=== PATIENT | male | born 1970 | race Two or more races ===

== ENCOUNTER 2021-09-21 03:09 | Emergency (ER) | payer SELFPAY ==
[~2021-09-21] VITALS: Ht 180.3 cm; Wt 113.4 kg
[2021-09-21] MEDS ORDERED: LIDOCAINE 1% HCL (LOCAL ANESTH.) INJ 20ML MDV ID ONE (03:45)
[2021-09-21] MEDS ORDERED: LIDOCAINE 1%HCL (LOCAL ANESTH) 10 ML MDV ONE (03:53)
[2021-09-21 05:45] VITALS: BP 133/87
== END 2021-09-21 09:18 | disposition home or self-care (01) ==
LOC: EDBD 03:09 → ER 03:09
DX: S91.201A Unspecified open wound of right great toe with damage to nail, initial encounter (principal); L60.0 Ingrowing nail; E11.9 Type 2 diabetes mellitus without complications; X58.XXXA Exposure to other specified factors, initial encounter; Y93.89 Activity, other specified; Y92.89 Other specified places as the place of occurrence of the external cause; Y99.8 Other external cause status
CPT/HCPCS: 11730; 99284; J2001

== ENCOUNTER 2024-05-08 17:18 | Inpatient (IN) | payer OTHER ==
[~2024-05-08] VITALS: Ht 185.4 cm; Wt 131.0 kg
--- NOTE | 2024-05-08 17:40 | ED.PDOC ---
General HPI Comments 54y M who presents to the ED for chief complaint of flank pain. Pt states he has been having R sided flank pain for the past 2-3 days. pt states the pain is sharp in nature, rating the pain 9/10, radiating to the R groin, with no noted exacerbating or relieving factors. Pt has associated nausea and mild dysuria but otherwise denies vomiting, diarrhea, fever, cough, chills, or hematuria. Pt denies any associated fall or trauma. Pt otherwise denies any past history of kidney stones. Pt denies any other symptoms at this time. Chief Complaint: flank pain Time Seen by MD: 17:37 Reviewed notes: Nurses Notes, Allergies Allergies: Coded Allergies: NO KNOWN ALLERGIES (Unverified , 05/08/24) Information Source: Patient Mode of Arrival: Ambulatory Brought in by: self Severity: Moderate Inability to void: None Timing: Days Duration: Since onset Prehospital treatment: None Onset: Spontaneous Symptoms: Dysuria History of: None Location: (R) Flank Location male: R Scrotum Penile discharge: None Modifying factors: None associated signs and symptoms: Nausea, Flank Pain Past Medical History PAST MEDICAL HISTORY: Cancer, CHF, COPD, DM, High Lipids, HTN Surgical History: Denies all surgeries Surgical History (Other): R kidney resection due to cancer Family History Family History: Reviewed,noncontributory to illness Social History Smoker: Cigarettes Alcohol: Denies ETOH Use Drugs: Denies Drug Use Lives In: Home Constitutional: denies: chills, diaphoresis, fatigue, fever, malaise, sweats, weakness, others EENTM: denies: blurred vision, double vision, ear bleeding, ear discharge, ear drainage, ear pain, ear ringing, eye pain, eye redness, hearing loss, mouth pain, mouth swelling, nasal discharge, nose bleeding, nose congestion, nose pain, photophobia, tearing, throat pain, throat swelling, voice changes, others Respiratory: denies: cough, hemoptysis, orthopnea, SOB at rest, shortness of breath, SOB with excertion, stridor, wheezing, others Cardiovascular: denies: chest pain, dizzy spells, diaphoresis, Dyspnea on exer tion, edema, irregular heart beat, left arm pain, lightheadedness, palpitations, PND, syncope, others Gastrointestinal: reports: nausea; denies: abdomen distended, abdominal pain, blood streaked bowels, constipated, diarrhea, dysphagia, difficulty swallowing, hematemesis, melena, poor appetite, poor fluid intake, rectal bleeding, rectal pain, vomiting, others Genitourinary: reports: dysuria, flank pain; denies: burning, frequency, hematuria, incontinence, penile discharge, penile sore, pain, testicle pain, testicle swelling, urgency, others Neurological: denies: dizziness, fainting, headache, left sided numbness, left sided weakness, numbness, paresthesia, pre-existing deficit, right sided numbness, right sided weakness, seizure, speech problems, tingling, tremors, weakness, others Musculoskeletal: denies: back pain, gout, joint pain, joint swelling, muscle pain, muscle stiffness, neck pain, others Integumetry: denies: bruises, change in color, change in hair/nails, dryness, laceration, lesions, lumps, rash, wounds, others Allergic/Immunocompromised: denies: Difficulty Healing, Frequent Infections, Hives, Itching, others Hematologic/Lymphatic: denies: anemia, blood clots, easy bleeding, easy bruising, swollen glands, others Endocrine: denies: excessive hunger, excessive sweating, excessive thirst, excessive urination, flushing, intolerance to cold, intolerance to heat, unexplained weight gain, unexplained weight loss, others Psychiatric: denies: anxiety, bipolar disorder, depression, hopeless, panic disorder, schizophrenia, sleepless, suicidal, others All Other Systems: Reviewed and Negative Physical Exam General Appearance: Moderate Distress, Obese HEENT: Normal ENT Inspection, Pharynx Normal, TMs Normal Neck: Full Range of Motion, Non-Tender, Normal, Normal Inspection Respiratory: Chest Non-Tender, Lungs Clear, No Accessory Muscle Use, No Respiratory Distress, Normal Breath Sounds Cardiovascular: No Edema, No JVD, No Murmur, No Gallop, Normal Peripheral Pulses, Regular Rate/Rhythm Breast Exam: Deferred Gastrointestinal: No Organomegaly, Non Tender, No Pulsatile Mass, Normal Bowel Sounds, Soft Genitalia: Deferred Pelvic: Deferred Rectal: Deferred Extremities: No calf tenderness, Normal capillary refill, Normal inspection, Normal range of motion, Non-tender, No pedal edema Musculoskeletal : Apperance: Normal Neurologic: Alert, building energy consultant II-XII nml as Tested, No Motor Deficits, Normal Affect, Normal Mood, No Sensory Deficits Cerebellar Function: Normal Reflexes: Normal Skin: Dry, Normal Color, Warm Lymphatic: No Adenopathy Was a procedure done? Was a procedure done?: No Differential Diagnosis Kidney stone (Female): N/A Kidney stone (Male): DJD, Pyelonephritis, Strain, Urinary tract infection Urinary Problem (Male): Epididymitis, Prostatitis, Plelonephritis, Urethritis, UTI X-Ray, Labs, Meds, VS Vital Signs Date Time Temp Pulse Resp B/P (MAP) Pulse Ox O2 Delivery O2 Flow Rate FiO2 05/08/24 20:27 112 20 160/101 05/08/24 20:26 112 20 98 Room Air 05/08/24 20:20 98.6 112 20 160/101 (120) 98 98.6 05/08/24 17:37 98.4 121 20 156/94 (114) 93 Lab Test 05/08/24 20:15 05/08/24 18:47 05/08/24 17:31 Range/Units Sodium Level Pending Potassium Level Pending Chloride Level Pending Carbon Dioxide Level Pending Anion Gap Pending Blood Urea Nitrogen Pending Creatinine Pending Glomerular Filtration Rate Calc Pending BUN/Creatinine Ratio Pending Serum Glucose Pending Calcium Level Pending Total Bilirubin Pending Aspartate Amino Transferase (AST) Pending Alanine Aminotransferase (ALT) Pending Alkaline Phosphatase Pending Total Protein Pending Albumin Pending Lipase Pending White Blood Count 10.5 4.4-10.8 10^3/uL Red Blood Count 4.88 4.5-5.90 10^6/uL Hemoglobin 15.6 13.5-17.5 g/dL Hematocrit 46.0 41.0-53.0 % Mean Corpuscular Volume 94.1 80.0-100.0 fL Mean Corpuscular Hemoglobin 32.0 28.0-32.0 pg Mean Corpuscular Hemoglobin Concent 34.0 32.0-36.0 g/dL Red Cell Distribution Width 13.4 11.8-14.3 % Platelet Count 230 140-450 10^3/uL Mean Platelet Volume 9.8 6.9-10.8 fL Neutrophils (%) (Auto) 68.4 37.0-80.0 % Lymphocytes (%) (Auto) 18.0 10.0-50.0 % Monocytes (%) (Auto) 9.4 0.0-12.0 % Eosinophils (%) (Auto) 3.8 0.0-7.0 % Basophils (%) (Auto) 0.4 0.0-2.0 % Neutrophils # (Auto) 7.2 1.6-8.6 10 ^3/uL Lymphocytes # (Auto) 1.9 0.4-5.4 10 ^3/uL Monocytes # (Auto) 1.0 0-1.3 10 ^3/uL Eosinophils # (Auto) 0.4 0-0.8 10 ^3/uL Basophils # (Auto) 0 0-0.2 10 ^3/uL Nucleated Red Blood Cells 0.0 % Urine Color Light-yellow Yellow Urine Clarity Turbid H Clear Urine pH 7.5 5.0-9.0 Urine Specific [place] 1.016 1.001-1.035 Urine Protein 1+ H Negative Urine Ketones Negative Negative Urine Blood Negative Negative /uL Urine Nitrite Negative Negative Urine Bilirubin Negative Negative Urine Urobilinogen 2 H Negative mg/dL Urine Leukocyte Esterase Trace Negative /uL Urine RBC 1 0 - 3 /hpf Urine Microscopic WBC 8 H 0-3 /HPF Urine Squamous Epithelial Cells Few <5 /hpf Urine Bacteria None seen None Seen /hpf Urine Mucus Few None Seen Urine Glucose 1+ H Normal mg/dL Current Medications Medications (Trade) Dose Ordered Sig/Tamiko Route Start Time Stop Time Status Last Admin Ondansetron HCl (Zofran) 4 mg ONCE ONCE IV 05/08/24 17:45 05/08/24 17:46 DC 05/08/24 20:27 Morphine Sulfate 4 mg ONCE ONCE IV 05/08/24 17:45 05/08/24 17:46 DC 05/08/24 20:27 Sodium Chloride 500 ml @ 500 mls/hr Q1H ONCE IVB 05/08/24 17:45 05/08/24 18:44 DC 05/08/24 20:17 Exam: CT CT AB PEL WO CON-NO ORAL OR IV IMPRESSION: 1. Right kidney is been surgically removed. Right adrenal gland is absent. 2. There is a hernia on the right which may be either an incisional hernia or spigelian hernia. In the defect is a large loop of colon. 3. Measures approximately 18-19 cm front to back and 74991 cm craniocaudal. 4. Left kidney is within normal limits with no nephrolithiasis or hydronephros is. The patient was given morphine 4 mg IV push The patient was given Zofran 4 mg IV push The patient was bolused with normal saline at 500 cc The patient's urine is negative The CBC is within limits Patient continues to have a significant amount of pain The patient was with a diagnosis of abdominal pain unknown etiology Images Reviewed?: Images reviewed and evaluated by me Time of 1ST Reevaluation: 18:10 Reevaluation 1ST: Unchanged Patient Education/Counseling: Diagnosis, Treatment Family Education/Counseling: No Family Present Departure 1 Departure Time of Disposition: 20:41 Impression: Primary Impression: Abdominal pain of unknown etiology Disposition: ADMITTED INPATIENT Admit to: Med Surg Condition: Fair Critical Care Note Critical Care Time?: No Stability Stability form required: Yes Unstable for transfer: ED Physician Assesment (Clinical assesment) Heart Score Heart Score: Heart Score Response (Comments) Value History N/A 0 EKG N/A 0 Age N/A 0 Risk Factors N/A 0 Troponin N/A 0 Total 0 I personally scribed for MARGAUX GARRETT MD ([email or web address]) on 05/08/24 at 17:40. Electronically submitted by Bethel Duff ([email or web address]). I personally scribed for MARGAUX GARRETT MD ([email or web address]) on 05/08/24 at 18:46. Electronically submitted by Bethel Duff ([email or web address]). MARGAUX GARRETT MD May 08, 2024 17:40
[2024-05-08 18:08] LABS: Urine Bacteria None Seen /hpf (None Seen)
[2024-05-08 18:31] LABS: Urine Blood Negative /uL (Negative); Urine Clarity Turbid (Clear); Urine Color Light-Yellow (Yellow); Urine Mucus FEW (None Seen); Urine Protein, UAD 1+ (Negative); Urine Specific Gravity 1.016 (1.001-1.035); Urine Squamous Epithelial Cell FEW /hpf (<5); Urine Urobilinogen 2 mg/dL (Negative); Urine WBC 8 /HPF (0-3); Urine pH 7.5 (5.0-9.0)
--- NOTE | 2024-05-08 18:40 | DVH ---
Exam: CT CT AB PEL WO CON-NO ORAL OR IV History: right flank pain Comparison Study: None available at time of dictation. TECHNIQUE: Multidetector CT of the abdomen was performed from lung bases to pubic symphysis. Imaging was performed without IV contrast. Axial, coronal and sagittal multiplanar reformats were obtained fr om the axial data set by the technologist. Radiation Dose Information: CT Dose: CTDI volume is 25.38 mGy. Dose-length product is 1383.44 mGy*cm FINDINGS: Evaluation of solid organs is limited due to lack of intravenous contrast use. Findings: Lung Bases: No acute or significant lung base finding. Normal heart size. No pleural or pericardial effusion. Liver: The liver is normal in size. No focal lesions. Gallbladder and Biliary Tree: Unremarkable Spleen: Calcified splenic granulomas. Pancreas: The pancreas is grossly normal in appearance. Adrenal Glands: Unremarkable Kidneys: Right kidney is been surgically removed. There is no nephrolithiasis on the left no hydronep hrosis. Bladder: Grossly unremarkable for degree of distention. Bowel: The stomach is grossly normal in appearance. Small bowel and colon are normal in caliber and d istribution. The appendix is not visualized; however, no secondary findings of acute appendicitis id entified. Ascites: Absent Lymphadenopathy: No mesenteric, retroperitoneal or periportal lymphadenopathy. Abdominal Wall and Mesentery: Incisional or Spigelian hernia on the right just below the liver. Large bowel is herniated through this defect. There are no findings to suggest bowel obstruction. Vasculature: The visualized abdominal aorta is normal in size and caliber. Evaluation of abdominal a nd pelvic vessels is limited due to lack of intravenous contrast. Pelvic Organs: Unremarkable Musculoskeletal: No aggressive focal bony lesions, acute fractures or dislocation. Soft tissues: Unremarkable IMPRESSION: 1. Right kidney is been surgically removed. Right adrenal gland is absent. 2. There is a hernia on the right which may be either an incisional hernia or spigelian hernia. In th e defect is a large loop of colon. 3. Measures approximately 18-19 cm front to back and 55912 cm craniocaudal. 4. Left kidney is within normal limits with no nephrolithiasis or hydronephrosis. Radiation optimization: All CT scans at this facility use at least one of these dose optimization samir hniques: automated exposure control mA and/or kV adjustment per patient size (includes targeted exam s where dose is matched to clinical indication) or iterative reconstruction.
[2024-05-08 19:02] LABS: Basophils # (auto) 0 10 ^3/uL (0-0.2); Basophils % (auto) 0.4 % (0.0-2.0); Eosinophils # (auto) 0.4 10 ^3/uL (0-0.8); Eosinophils % (auto) 3.8 % (0.0-7.0); Hemoglobin 15.6 g/dL (13.5-17.5); Lymphocytes # (auto) 1.9 10 ^3/uL (0.4-5.4); Mean Corpuscular Volume 94.1 fL (80.0-100.0); Monocytes % (auto) 9.4 % (0.0-12.0); Neutrophils # (auto) 7.2 10 ^3/uL (1.6-8.6); Neutrophils % (auto) 68.4 % (37.0-80.0); Platelet Count (auto) 230 10^3/uL (140-450); Red Blood Cells 4.88 10^6/uL (4.5-5.90); Red Cell Distribution Width 13.4 % (11.8-14.3); White Blood Cell 10.5 10^3/uL (4.4-10.8)
[2024-05-08] MEDS: SODIUM CHLORIDE 0.9% 500 ML IVB ONE (20:17)
[2024-05-08] MEDS: ONDANSETRON HCL 4 MG/2 ML VIAL IV ONE (20:27)
[2024-05-08] MEDS: MORPHINE SULFATE 4 MG/ML SYR/VIAL IV ONE (20:27)
[2024-05-08 20:34] LABS: Anion Gap 4 (5-15)
[2024-05-08 20:43] LABS: BUN/Creatinine Ratio 9.8 (10.0-20.0)
[2024-05-08 20:45] LABS: Alanine Aminotransferase 19 U/L (7-40); Albumin 4.4 g/dL (3.2-4.8); Alkaline Phosphatase 67 U/L (46-116); Aspartate Aminotransferase 17 U/L (13-40); Bilirubin, Total 0.3 mg/dL (0.2-1.0); Blood Urea Nitrogen 12 mg/dL (9-23); Calcium 9.9 mg/dL (8.7-10.4); Carbon Dioxide 25 mmol/L (20-31); Chloride 106 mmol/L (98-107); Glucose 135 mg/dL (74-106); Lipase 30 U/L (12-53); Potassium 4.4 mmol/L (3.5-5.1); Sodium 135 mmol/L (136-145); Total Protein 7.1 g/dL (5.7-8.2)
[2024-05-08] MEDS ORDERED: SODIUM CHLORIDE 0.9% 1,000 ML IV SCH (21:45)
[2024-05-08] MEDS ORDERED: ONDANSETRON HCL 4 MG/2 ML VIAL IV PRN (21:45)
[2024-05-08] MEDS ORDERED: ACETAMINOPHEN 325 MG TAB PO PRN (21:45)
[2024-05-08] MEDS ORDERED: HYDROcodone-ACET 5/325MG TAB PO PRN (21:45)
[2024-05-08] MEDS ORDERED: DOCUSATE SOD 100 MG CAP PO PRN (21:45)
[2024-05-08] MEDS ORDERED: MORPHINE SULFATE INJ 2 MG/ml SYRG IV PRN ×2 (21:45→23:00)
[2024-05-08] MEDS ORDERED: NITROGLYCERIN 0.4 MG SL TAB SL PRN (23:00)
--- NOTE | 2024-05-08 23:02 | DVHHP2 ---
History of Present Illness Reason for Visit: Flank pain History of Present Illness The patient is a 54-year-old male with multiple past medical history including kidney cancer, CHF, COPD, and diabetes mellitus who presented to [facility] ED with complaint of flank pain. Patient reports symptoms progressively get worse with radiating flank pain to the abdomen, right groin region, rating 9/10 numeric scale, sharp in nature, associated nausea, dysuria, getting worse that prompted this visit. Patient was seen and evaluated in the ED, laboratory data shows WBC 10.5, platelets 230, sodium 135, potassium 4.4, BUN 12, creatinine 1.23, GFR 69, glucose 135, lipase 30, blood pressure 138/97, heart rate 100, temperature 99.1 F, O2 saturation 98% on room air. Abdomen/pelvis CT revealing right kidney is surgically removed, right adrenal gland is absent, hernia on the right which may be either an incisional hernia or spigelian hernia; left kidney is within normal limits with no nephrolithiasis or hydronephrosis. Please see medication orders section in the computer..On my assessment, patient denies pain at this moment, no headache, no dizziness, no shortness of breath, no diarrhea, no nausea, no vomiting, no fever, no chills. Patient was admitted for further evaluation and medical management. Past Medical History Right kidney cancer, CHF, COPD, DM, High Lipids, HTN. Past Surgical History Right kidney resection due to cancer, right arm surgery. Family History Patient lives at home, smokes cigarettes, denies alcohol or illicit drugs abuse. Past Social History The patient lives at home, denies smoking, alcohol or illicit drugs abuse. Review of Systems Constitutional: No: Fever, Chills, Sweats, Weakness, Malaise, Other Eyes: No: Pain, Vision change, Conjunctivae inflammation, Eyelid inflammation, Other, Redness ENT: No: Ear pain, Ear discharge, Nose pain, Nose discharge, Nose congestion, Mouth pain, Mouth swelling, Throat pain, Throat swelling, Other Respiratory: No: Cough, Dry, Shortness of breath, SOB with excertion, Wheezing, Hemoptysis, Pleuritic Pain, Sputum, Wheezing, Other Cardiovascular: No: Chest Pain, Palpitations, Orthopnea, Paroxysmal Noc. Dyspnea, Edema, Lt Headedness, Other Gastrointestinal: Nausea; No: Vomiting, Abdominal Pain, Diarrhea, Constipation, Melena, Hematochezia, Other Genitourinary: Dysuria; No Frequency, No Incontinence, No Hematuria, No Retention; Other (Flank pain) Musculoskeletal: No: other, neck pain, shoulder pain, arm pain, back pain, hand pain, leg pain, foot pain Skin: No: Rash, Lesions, Jaundice, Bruising, Other Neurological: No: Weakness, Numbness, Incoordination, Change in speech, Confusion, Seizures, Other Allergies: Coded Allergies: NO KNOWN ALLERGIES (Unverified , 05/08/24) Medications Current Medications Medications Dose Ordered Sig/Tamiko Route Start Time Stop Time Status Last Admin Dose Admin Sodium Chloride 1,000 ml @ 60 mls/hr [id number] IV 05/08/24 21:45 Acetaminophen/ Hydrocodone Bitart 1 tab Q4HP PRN PO 05/08/24 21:45 Ondansetron HCl 4 mg Q4HP PRN IV 05/08/24 21:45 Docusate Sodium 100 mg BIDPRN PRN PO 05/08/24 21:45 Acetaminophen 650 mg Q6HP PRN PO 05/08/24 21:45 Morphine Sulfate 2 mg Q4HPRN PRN IV 05/08/24 21:45 Nitroglycerin 0.4 mg Q5MINP PRN SL 05/08/24 23:00 UNV Morphine Sulfate 2 mg Q30M PRN IV 05/08/24 23:00 UNV Exam Vital Signs Vital Signs Date Time Temp Pulse Resp B/P (MAP) Pulse Ox O2 Delivery O2 Flow Rate FiO2 05/08/24 21:24 100 16 138/97 05/08/24 21:22 98.1 97 98.1 05/08/24 20:26 Room Air General Appearance: Alert, Oriented X3, Cooperative, No acute distress HEENT: Atraumatic, PERRLA, EOMI, Mucous membr. moist/pink Respiratory: Clear to auscultation, Normal air movement Cardiovascular: Regular rate, Normal S1, Normal S2, No murmurs Abdominal: Normal bowel sounds, Soft, No hepatospenomegaly, No masses, Other (Reports tenderness) Extremities: No clubbing, No cyanosis, No edema, Normal pulses, No tenderness /swelling Skin: No rashes, No breakdown, No significant lesion Neuro: Normal gait, Normal speech, Strength at 5/5 X4 ext, Normal tone, Sensation intact, Cranial nerves 3-12 NL, Reflexes 2+ Psych/Mental Status: Mental status NL, Mood NL Labs/Xrays Labs Test 05/08/24 20:15 05/08/24 18:47 05/08/24 17:31 Range/Units Sodium Level 135 L 136-145 mmol/L Potassium Level 4.4 3.5-5.1 mmol/L Chloride Level 106 98-107 mmol/L Carbon Dioxide Level 25 20-31 mmol/L Anion Gap 4 L 5-15 Blood Urea Nitrogen 12 9-23 mg/dL Creatinine 1.23 0.700-1.30 mg/dL Glomerular Filtration Rate Calc 69 >90 mL/min BUN/Creatinine Ratio 9.8 L 10.0-20.0 Serum Glucose 135 H 74-106 mg/dL Calcium Level 9.9 8.7-10.4 mg/dL Total Bilirubin 0.3 0.2-1.0 mg/dL Aspartate Amino Transferase (AST) 17 13-40 U/L Alanine Aminotransferase (ALT) 19 7-40 U/L Alkaline Phosphatase 67 46-116 U/L Total Protein 7.1 5.7-8.2 g/dL Albumin 4.4 3.2-4.8 g/dL Lipase 30 12-53 U/L White Blood Count 10.5 4.4-10.8 10^3/uL Red Blood Count 4.88 4.5-5.90 10^6/uL Hemoglobin 15.6 13.5-17.5 g/dL Hematocrit 46.0 41.0-53.0 % Mean Corpuscular Volume 94.1 80.0-100.0 fL Mean Corpuscular Hemoglobin 32.0 28.0-32.0 pg Mean Corpuscular Hemoglobin Concent 34.0 32.0-36.0 g/dL Red Cell Distribution Width 13.4 11.8-14.3 % Platelet Count 230 140-450 10^3/uL Mean Platelet Volume 9.8 6.9-10.8 fL Neutrophils (%) (Auto) 68.4 37.0-80.0 % Lymphocytes (%) (Auto) 18.0 10.0-50.0 % Monocytes (%) (Auto) 9.4 0.0-12.0 % Eosinophils (%) (Auto) 3.8 0.0-7.0 % Basophils (%) (Auto) 0.4 0.0-2.0 % Neutrophils # (Auto) 7.2 1.6-8.6 10 ^3/uL Lymphocytes # (Auto) 1.9 0.4-5.4 10 ^3/uL Monocytes # (Auto) 1.0 0-1.3 10 ^3/uL Eosinophils # (Auto) 0.4 0-0.8 10 ^3/uL Basophils # (Auto) 0 0-0.2 10 ^3/uL Nucleated Red Blood Cells 0.0 % B-Type Natriuretic Peptide 4.49 0-100 pg/mL Urine Color Light-yellow Yellow Urine Clarity Turbid H Clear Urine pH 7.5 5.0-9.0 Urine Specific [place] 1.016 1.001-1.035 Urine Protein 1+ H Negative Urine Ketones Negative Negative Urine Blood Negative Negative /uL Urine Nitrite Negative Negative Urine Bilirubin Negative Negative Urine Urobilinogen 2 H Negative mg/dL Urine Leukocyte Esterase Trace Negative /uL Urine RBC 1 0 - 3 /hpf Urine Microscopic WBC 8 H 0-3 /HPF Urine Squamous Epithelial Cells Few <5 /hpf Urine Bacteria None seen None Seen /hpf Urine Mucus Few None Seen Urine Glucose 1+ H Normal mg/dL PATIENT: KRISTINA COOPERACCT: [id number] UNIT: [id number] : 1970 LOC: ER ROOM / BED: / AGE / SEX: 54 / M ADM STATUS: REG ER SERVICE [id number] ORDERING PHYSICIAN: MARGAUX GARRETT MD PROCEDURE(s): ABPL - CT AB PEL WO CON-NO ORAL OR IV REASON: right flank pain ORDER NUMBER(s): [id number], ACCESSION NUMBER(s): [id number] Exam: CT CT AB PEL WO CON-NO ORAL OR IV History: right flank pain Comparison Study: None available at time of dictation. TECHNIQUE: Multidetector CT of the abdomen was performed from lung bases to pubic symphysis. Imaging was performed without IV contrast. Axial, coronal and sagittal multiplanar reformats were obtained from the axial data set by the technologist. Radiation Dose Information: CT Dose: CTDI volume is 25.38 mGy. Dose-length product is 1383.44 mGy*cm FINDINGS: Evaluation of solid organs is limited due to lack of intravenous contrast use. Findings: Lung Bases: No acute or significant lung base finding. Normal heart size. No pleural or pericardial effusion. Liver: The liver is normal in size. No focal lesions. Gallbladder and Biliary Tree: Unremarkable Spleen: Calcified splenic granulomas. Pancreas: The pancreas is grossly normal in appearance. Adrenal Glands: Unremarkable Kidneys: Right kidney is been surgically removed. There is no nephrolithiasis on the left no hydronephrosis. Bladder: Grossly unremarkable for degree of distention. Bowel: The stomach is grossly normal in appearance. Small bowel and colon are normal in caliber and distribution. The appendix is not visualized; however, no secondary findings of acute appendicitis identified. Ascites: Absent Lymphadenopathy: No mesenteric, retroperitoneal or periportal lymphadenopathy. Abdominal Wall and Mesentery: Incisional or Spigelian hernia on the right just below the liver. Large bowel is herniated through this defect. There are no findings to suggest bowel obstruction. Vasculature: The visualized abdominal aorta is normal in size and caliber. Evaluation of abdominal and pelvic vessels is limited due to lack of intravenous contrast. Pelvic Organs: Unremarkable Musculoskeletal: No aggressive focal bony lesions, acute fractures or dislocation. Soft tissues: Unremarkable IMPRESSION: 1. Right kidney is been surgically removed. Right adrenal gland is absent. 2. There is a hernia on the right which may be either an incisional hernia or spigelian hernia. In the defect is a large loop of colon. 3. Measures approximately 18-19 cm front to back and 20976 cm craniocaudal. 4. Left kidney is within normal limits with no nephrolithiasis or hydronephrosis. Assessment/Plan Assessment/Plan Flank pain Hernia Abdominal pain of unknown etiology Plan 1. Admit to med surge unit 2. Breathing treatment 3. Pain control management 4. Management of fluids and electrolytes 5. Consultation for hospitalist 6. Diagnostic tests abdomen/pelvis CT 7. DVT prophylaxis-on SCDs 8. Repeat labs CBC, CMP in a.m. 9. Continue with current medical management 10. Treatment plan discussed with patient and RN. Patient verbalized understanding. Plan discussed with: Patient, Other (RN) My Orders Orders - MARIALUISA STARK DNP Procedure Category Date Status Time Allergies RANDA 05/08/24 In Process 21:44 Code Status CODE 05/08/24 Transmitted 21:44 Sodium Chloride 0.9% PHA 05/08/24 In Process 21:45 Oxygen Per Hour RT 05/08/24 Transmitted 21:44 Hydrocodone-Acet PHA 05/08/24 In Process 5/325mg Tab (Tinnie 21:45 Ondansetron Hcl PHA 05/08/24 In Process (Zofran) 21:45 Docusate Sodium PHA 05/08/24 In Process Capsule (Colace 21:45 Complete Blood Count LAB 05/09/24 Verified 04:00 Comprehensive LAB 05/09/24 Verified Metabolic Panel 04:00 Cardiac DIET 05/09/24 Transmitted Diet-2gna,Lofat,Lochol Breakfast Condition: Serious RANDA 05/08/24 In Process 21:44 Acetaminophen Tablet PHA 05/08/24 In Process (Tylenol Tablet) 21:45 Bedrest With Bathroom RANDA 05/08/24 In Process Privileg 21:44 Morphine Sulfate PHA 05/08/24 In Process Injection 21:45 Sequential RANDA 05/08/24 In Process Compression Device Admit ADMIT 05/08/24 Transmitted 22:59 Nitroglycerin PHA 05/08/24 Logged Sublingual (Ntrostat 23:00 Morphine Sulfate PHA 05/08/24 Logged Injection 23:00 Notify Of Changes RANDA 05/08/24 In Process From Base 22:59 Emergency Dysrhythmia RANDA 05/08/24 In Process Protocol 22:59 Oxygen By Nasal RT 05/08/24 Transmitted Cannula 22:59 Problem List: (1) Flank pain (2) Hernia (3) Abdominal pain of unknown etiology Date of Service: May 08, 2024 Billing Provider: MARIALUISA STARK DNP Common Visit Codes: [id number] INP/OBS CARE (HIGH) MARIALUISA STARK DNP May 08, 2024 23:02
[2024-05-09] VITALS (7 sets, daily range): BP systolic 130–143; BP diastolic 68–94; PULSE 80–105; RESP 12–20; TEMP 97.5–98.7; O2SAT 93–98
[2024-05-09] MEDS ORDERED: ACETAMINOPHEN 325 MG TAB PO PRN (17:00)
[2024-05-09] MEDS ORDERED: MORPHINE SULFATE INJ 2 MG/ml SYRG IV PRN (17:00)
[2024-05-09] MEDS: MORPHINE SULFATE INJ 2 MG/ml SYRG IV PRN (21:07)
[2024-05-10] VITALS (8 sets, daily range): BP systolic 103–140; BP diastolic 56–99; PULSE 77–99; RESP 17–20; TEMP 97.1–98.2; O2SAT 92–96
--- NOTE | 2024-05-10 11:19 | DVHPN2 ---
Reviewed: Care Plan, H&P, Labs, Medications, Previous Orders, Radiology Changes from previous H/P or p: No Changes Eyes: No Pain, No Vision change, No Conjunctivae inflammation, No Eyelid inflammation, No Other, No Redness ENT: No Ear pain, No Ear discharge, No Nose pain, No Nose discharge, No Nose congestion, No Mouth pain, No Mouth swelling, No Throat pain, No Throat swelling, No Other Cardiovascular: No Chest Pain, No Palpitations, No Orthopnea, No Paroxysmal Noc. Dyspnea, No Edema, No Lt Headedness, No Other Respiratory: No Cough, No Dry, No Shortness of breath, No SOB with excertion, No Wheezing, No Hemoptysis, No Pleuritic Pain, No Sputum, No Other Gastrointestinal: Nausea; No Vomiting, No Abdominal Pain, No Diarrhea, No Constipation, No Melena, No Hematochezia, No Other Genitourinary: Dysuria; No Frequency, No Incontinence, No Hematuria, No Retention; Other (Flank pain) Musculoskeletal: No other, No neck pain, No shoulder pain, No arm pain, No back pain, No hand pain, No leg pain, No foot pain Skin: No Rash, No Lesions, No Jaundice, No Bruising, No Other Objective Vitals Vital Signs Date Time Temp Pulse Resp B/P (MAP) Pulse Ox O2 Delivery O2 Flow Rate FiO2 05/10/24 09:00 97.3 89 18 140/68 (92) 92 97.3 05/09/24 20:00 Room Air* 0 21 Intake/Output Intake and Output 05/10/24 07:00 Intake Total 800 ml Output Total 1125 ml Balance -325 ml Intake Oral 800 ml Output Urine Total 1125 ml # Bowel Movements 1 Medications Current Medications Medications Dose Ordered Sig/Taimko Route Start Time Stop Time Status Last Admin Dose Admin Acetaminophen 650 mg Q6HP PRN PO 05/09/24 17:00 Acetaminophen/ Hydrocodone Bitart 1 tab Q6HPRN PRN PO 05/09/24 17:00 Morphine Sulfate 1 mg Q6HPRN PRN IV 05/09/24 18:00 05/10/24 08:52 1 MG Laboratory Results Laboratory Tests 05/08/24 18:47 05/08/24 20:15 Urinalysis Test 05/08/24 17:31 Urine Color Light-yellow (Yellow) Urine Clarity Turbid (Clear) H Urine pH 7.5 (5.0-9.0) Urine Specific [place] 1.016 (1.001-1.035) Urine Protein 1+ (Negative) H Urine Ketones Negative (Negative) Urine Blood Negative /uL (Negative) Urine Nitrite Negative (Negative) Urine Bilirubin Negative (Negative) Urine Urobilinogen 2 mg/dL (Negative) H Urine Leukocyte Esterase Trace /uL (Negative) Urine RBC 1 /hpf (0 - 3) Urine Microscopic WBC 8 /HPF (0-3) H Urine Squamous Epithelial Cells Few /hpf (<5) Urine Bacteria None seen /hpf (None Seen) Urine Mucus Few (None Seen) Urine Glucose 1+ mg/dL (Normal) H Labs and/or images reviewed: Labs reviewed by me, Image(s) reviewed by me Assessment/Plan Assessment/Plan Acute abdominal pain possibly secondary to incisional hernia: Consult for surgeon Dr. Abbott, pain meds History of right kidney cancer status post nephrectomy COPD exacerbation CHF exacerbation Diabetes Hypercholesterolemia Hypertension Time spent 45 minutes Patient is full code Advanced care planning time 20 minutes Plan discussed with: Patient Date of Service: May 10, 2024 Billing Provider: ROD PAYTON MD Common Visit Codes: [id number] INP/OBS CARE(HIGH) ROD PAYTON MD May 10, 2024 11:19
[2024-05-10] MEDS: HYDROcodone-ACET 5/325MG TAB PO PRN (12:12)
--- NOTE | 2024-05-10 14:48 | DVHINCON2 ---
Date of service: May 10, 2024 History of Present Illness 54-year-old obese male admitted secondary to right flank pain that has been going on for several weeks. Patient denies any fevers, chills, nausea or vomiting. Patient is status post right nephrectomy for cancer. Past Medical History History of renal cancer. CHF. COPD. Diabetes. Hypertension. Past Surgical History Right nephrectomy for cancer. Right arm fasciotomy. Family History: Patient reports no known family medical history. Family History Noncontributory Social History Smokes half a pack a day. Occasional alcohol. Denies any IV drug use. Allergies: Coded Allergies: NO KNOWN ALLERGIES (Unverified , 05/08/24) Current Medications Current Medications Medications (Trade) Dose Ordered Sig/Tamiko Route PRN Reason Start Time Stop Time Status Last Admin Acetaminophen (Tylenol Tablet) 650 mg Q6HP PRN PO MILD PAIN (1-3 PAIN SCALE) 05/09/24 17:00 Acetaminophen/ Hydrocodone Bitart ([place] 5/325MG Tab) 1 tab Q6HPRN PRN PO MODERATE PAIN (4-6 PAIN SCALE) 05/09/24 17:00 05/10/24 12:12 Morphine Sulfate 2 mg Q6HPRN PRN IV SEVERE PAIN (7-10 PAIN SCALE) 05/09/24 17:00 05/09/24 17:59 DC Morphine Sulfate 1 mg Q6HPRN PRN IV SEVERE PAIN (7-10 PAIN SCALE) 05/09/24 18:00 05/10/24 08:52 Vital Signs Vital Signs Date Time Temp Pulse Resp B/P (MAP) Pulse Ox O2 Delivery O2 Flow Rate FiO2 05/10/24 12:37 97.4 84 18 133/99 (110) 94 97.4 05/09/24 20:00 Room Air* 0 21 Physical Exam Obese male in no acute distress. Alert. HEENT: Normocephalic atraumatic. Moist mucous membranes. Anicteric sclerae. CV: RRR Respiratory: Coarse breath sounds ABD: There is a large incisional scar in the right flank with a large protuberance that is soft. Nontender. Obese abdomen. CT of the abdomen and pelvis: There is a hernia in the right which may be incisional or spigelian hernia containing a large loop of colon without obs truction. 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 Labs/Diagnostic Data Labs Test 05/08/24 20:15 05/08/24 18:47 05/08/24 17:31 Range/Units Sodium Level 135 L 136-145 mmol/L Potassium Level 4.4 3.5-5.1 mmol/L Chloride Level 106 98-107 mmol/L Carbon Dioxide Level 25 20-31 mmol/L Anion Gap 4 L 5-15 Blood Urea Nitrogen 12 9-23 mg/dL Creatinine 1.23 0.700-1.30 mg/dL Glomerular Filtration Rate Calc 69 >90 mL/min BUN/Creatinine Ratio 9.8 L 10.0-20.0 Serum Glucose 135 H 74-106 mg/dL Calcium Level 9.9 8.7-10.4 mg/dL Total Bilirubin 0.3 0.2-1.0 mg/dL Aspartate Amino Transferase (AST) 17 13-40 U/L Alanine Aminotransferase (ALT) 19 7-40 U/L Alkaline Phosphatase 67 46-116 U/L Total Protein 7.1 5.7-8.2 g/dL Albumin 4.4 3.2-4.8 g/dL Lipase 30 12-53 U/L White Blood Count 10.5 4.4-10.8 10^3/uL Red Blood Count 4.88 4.5-5.90 10^6/uL Hemoglobin 15.6 13.5-17.5 g/dL Hematocrit 46.0 41.0-53.0 % Mean Corpuscular Volume 94.1 80.0-100.0 fL Mean Corpuscular Hemoglobin 32.0 28.0-32.0 pg Mean Corpuscular Hemoglobin Concent 34.0 32.0-36.0 g/dL Red Cell Distribution Width 13.4 11.8-14.3 % Platelet Count 230 140-450 10^3/uL Mean Platelet Volume 9.8 6.9-10.8 fL Neutrophils (%) (Auto) 68.4 37.0-80.0 % Lymphocytes (%) (Auto) 18.0 10.0-50.0 % Monocytes (%) (Auto) 9.4 0.0-12.0 % Eosinophils (%) (Auto) 3.8 0.0-7.0 % Basophils (%) (Auto) 0.4 0.0-2.0 % Neutrophils # (Auto) 7.2 1.6-8.6 10 ^3/uL Lymphocytes # (Auto) 1.9 0.4-5.4 10 ^3/uL Monocytes # (Auto) 1.0 0-1.3 10 ^3/uL Eosinophils # (Auto) 0.4 0-0.8 10 ^3/uL Basophils # (Auto) 0 0-0.2 10 ^3/uL Nucleated Red Blood Cells 0.0 % B-Type Natriuretic Peptide 4.49 0-100 pg/mL Urine Color Light-yellow Yellow Urine Clarity Turbid H Clear Urine pH 7.5 5.0-9.0 Urine Specific [place] 1.016 1.001-1.035 Urine Protein 1+ H Negative Urine Ketones Negative Negative Urine Blood Negative Negative /uL Urine Nitrite Negative Negative Urine Bilirubin Negative Negative Urine Urobilinogen 2 H Negative mg/dL Urine Leukocyte Esterase Trace Negative /uL Urine RBC 1 0 - 3 /hpf Urine Microscopic WBC 8 H 0-3 /HPF Urine Squamous Epithelial Cells Few <5 /hpf Urine Bacteria None seen None Seen /hpf Urine Mucus Few None Seen Urine Glucose 1+ H Normal mg/dL Assessment 1. Right flank incisional hernia without obstruction. Plan/Recommendation 1. Due to the location of the hernia in the size, this is somewhat of a difficul t repair. Also there was no emergency surgery that needs to be performed at this time as there is no signs of obstruction. I would recommend an outpatient surgery at a tertiary center such as [place] for possible repair if the patient wishes. However patient is somewhat of a poor surgical candidate due to his morbid obesity, current smoking status, COPD and CHF. He will definitely require cardiac evaluation prior to possible surgery as an outpatient. Plan discussed with: Patient CONNER CASTILLO MD May 10, 2024 14:48
--- NOTE | 2024-05-10 16:47 | DVHSR ---
APPROVED REPORT EXAM: Two-dimensional and M-mode echocardiogram with Doppler and color Doppler. Blood Pressure: 133/99 mmHg INDICATION Preprocedural, evaluate cardiac function RISK FACTORS Obesity: Height: 6'1", Weight: 289 DIMENSIONS LVDd4.0 (3.8-5.7cm)LA (2D)4.0 (1.9-4.0cm)Aortic Root3.8 (2.0-3.7cm) LVDs2.7 (2.5-4.0cm)LA (MM) (1.9-4.0cm)Aortic Cusp Exc2.0 (1.5-2.0cm) EF (%) 60.0 (55-70%)Rt. Atrium4.6 (1.9-4.0cm)Asc. Aorta cm IVSd1.2 (0.7-1.1cm)RV (D)4.1 (1.8-2.4cm) PWd1.0 (0.7-1.1cm) Mitral Valve MitralMitral Stenosis E wave0.71m/sMV Mean GR.mmHg A wave0.80m/sMV Peak GR.mmHg E/A ratio0.92D MVAcm2 DECEL [id number] 1/2 Timems Aortic Valve Aortic ValveAortic Stenosis V10.94m/Ileana Mean GR.3mmHg V21.25m/Ileana Peak GR.6mmHg LVOT Diameter2.1 (1.8-2.4cm)Doppler AVA2.60cm2 Pulmonic Valve V20.86m/s LEFT VENTRICLE The left ventricle is of normal size. Wall thickness is borderline increased. Ejection fraction is normal and is estimated at 60%. There is no regional wall motion abnormalities. Diastolic function is indeterminate. E to E prime ratio is in the normal range. RIGHT VENTRICLE The right ventricle is of normal size. Systolic function is normal. ATRIA Both atria are of normal size. Intra-atrial septum is not well visualized. MITRAL VALVE Normal in structure and function. No significant mitral regurgitation PULMONIC VALVE Likely normal. TRICUSPID VALVE Normal structure and function. There is trace tricuspid regurgitation. PA systolic pressure is not adequately estimated. AORTIC VALVE The aortic valve leaflets are mildly calcified. No significant stenosis or regurgitation. GREAT VESSELS The aortic root measures 3.8 cm at the sinuses of Valsalva. Proximal ascending aorta isn't visualize d. PERICARDIAL EFFUSION No significant pericardial effusion. IVC is dilated in size and collapses normally with inspiration. Other Information Technically limited study due to body habitus. Conclusion The study is technically limited. Normal left ventricular size and systolic function. Ejection fraction is estimated at 60%. Normal right ventricular size and systolic function. Borderline left ventricular hypertrophy. No hemodynamically significant valvular disease. Mildly calcified aortic valve. PA systolic pressure isn't adequately estimated
--- NOTE | 2024-05-10 17:26 | DVH ---
CHEST RADIOGRAPH Indication: Preprocedural Technique: Single frontal view of the chest was obtained Comparison: None FINDINGS: Lines and Tubes: None Lungs: No focal consolidation. Pleura: No effusion. No pneumothorax. Cardiomediastinal contours: Unremarkable Bones: No acute osseous abnormality. IMPRESSION: 1. No acute cardiopulmonary disease.
--- NOTE | 2024-05-10 17:28 | DVHINCON2 ---
Date Seen: May 10, 2024 Referring Physician MD Timothy Reason for Consultation Cardiac risk stratification History of Present Illness This is a 54-year-old male patient who presents to the emergency room with chief complaint of right flank pain for two days prior to emergency room arrival. He came to the emergency room for further evaluation. Imaging revealed a hernia which may either be an incisional hernia or spigelian hernia. Cardiology has now been consulted for cardiac risk stratification pending possible surgical intervention. Initial twelve lead electrocardiogram reveals normal sinus rhythm without any significant ST segment changes. The patient is a very poor historian. Significant past medical history includes congestive heart failure, hypertension, hyperlipidemia, COPD, type 2 diabetes mellitus, renal cancer status post right nephrectomy, and morbid obesity. 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 Past Medical History Past medical history reviewed. No other significant than mentioned above. Past Surgical History Right nephrectomy Right arm surgery Family History: Patient reports no known family medical history. Family History Family history reviewed. Social History Patient is an active smoker, patient has a 20 pack-year history The patient denies any illicit drug use Patient denies any alcohol use Allergies: Coded Allergies: NO KNOWN ALLERGIES (Unverified , 05/08/24) Home Meds Home medications reviewed. Current Medications Current Medications Medications (Trade) Dose Ordered Sig/Tamiko Route PRN Reason Start Time Stop Time Status Last Admin Morphine Sulfate 1 mg Q6HPRN PRN IV SEVERE PAIN (7-10 PAIN SCALE) 05/09/24 18:00 05/10/24 08:52 Review of Systems Constitutional: No symptom reported Ears, Nose, & Throat: No symptom reported Eyes: No symptom reported Neurological: No symptoms reported Pulmonary/Respiratory: No symptoms reported Cardiovascular: No symptom reported Gastrointestinal: No symptom reported Genitourinary: No symptom reported Musculoskeletal: Right flank pain Skin: No symptom reported Psychiatric: No symptom reported Endocrine: No symptom reported Hematologic/Lymphatic: No symptom reported Vital Signs Vital Signs Date Time Temp Pulse Resp B/P (MAP) Pulse Ox O2 Delivery O2 Flow Rate FiO2 05/10/24 16:53 97.7 83 18 120/56 (77) 92 97.7 05/09/24 20:00 Room Air* 0 21 Physical Exam General Appearance: Cooperative. Morbidly obese Pulmonary/Respiratory: Clear, bilateral breaths sounds. Cardiovascular/Chest: Regular rate and rhythm. Peripheral Pulses: 2+ Radial (R). 2+ Radial (L). 2+ Pedal (R). 2+ Pedal (L) Abdominal Exam: Normal bowel sounds. Ankle Exam: Negative ankle edema Lower extremities: Negative lower extremity edema Neuro/Mental Status: A/OX4, coherent. Thoughts/Psych: Normal thought pattern. Appropriate mood and affect. Good judgment and insight. Appearance: No acute distress. Skin Exam: Normal inspection. Normal color. Warm and dry. Labs/Diagnostic Data Labs Test 05/08/24 20:15 05/08/24 18:47 05/08/24 17:31 Range/Units Sodium Level 135 L 136-145 mmol/L Potassium Level 4.4 3.5-5.1 mmol/L Chloride Level 106 98-107 mmol/L Carbon Dioxide Level 25 20-31 mmol/L Anion Gap 4 L 5-15 Blood Urea Nitrogen 12 9-23 mg/dL Creatinine 1.23 0.700-1.30 mg/dL Glomerular Filtration Rate Calc 69 >90 mL/min BUN/Creatinine Ratio 9.8 L 10.0-20.0 Serum Glucose 135 H 74-106 mg/dL Calcium Level 9.9 8.7-10.4 mg/dL Total Bilirubin 0.3 0.2-1.0 mg/dL Aspartate Amino Transferase (AST) 17 13-40 U/L Alanine Aminotransferase (ALT) 19 7-40 U/L Alkaline Phosphatase 67 46-116 U/L Total Protein 7.1 5.7-8.2 g/dL Albumin 4.4 3.2-4.8 g/dL Lipase 30 12-53 U/L White Blood Count 10.5 4.4-10.8 10^3/uL Red Blood Count 4.88 4.5-5.90 10^6/uL Hemoglobin 15.6 13.5-17.5 g/dL Hematocrit 46.0 41.0-53.0 % Mean Corpuscular Volume 94.1 80.0-100.0 fL Mean Corpuscular Hemoglobin 32.0 28.0-32.0 pg Mean Corpuscular Hemoglobin Concent 34.0 32.0-36.0 g/dL Red Cell Distribution Width 13.4 11.8-14.3 % Platelet Count 230 140-450 10^3/uL Mean Platelet Volume 9.8 6.9-10.8 fL Neutrophils (%) (Auto) 68.4 37.0-80.0 % Lymphocytes (%) (Auto) 18.0 10.0-50.0 % Monocytes (%) (Auto) 9.4 0.0-12.0 % Eosinophils (%) (Auto) 3.8 0.0-7.0 % Basophils (%) (Auto) 0.4 0.0-2.0 % Neutrophils # (Auto) 7.2 1.6-8.6 10 ^3/uL Lymphocytes # (Auto) 1.9 0.4-5.4 10 ^3/uL Monocytes # (Auto) 1.0 0-1.3 10 ^3/uL Eosinophils # (Auto) 0.4 0-0.8 10 ^3/uL Basophils # (Auto) 0 0-0.2 10 ^3/uL Nucleated Red Blood Cells 0.0 % B-Type Natriuretic Peptide 4.49 0-100 pg/mL Urine Color Light-yellow Yellow Urine Clarity Turbid H Clear Urine pH 7.5 5.0-9.0 Urine Specific [place] 1.016 1.001-1.035 Urine Protein 1+ H Negative Urine Ketones Negative Negative Urine Blood Negative Negative /uL Urine Nitrite Negative Negative Urine Bilirubin Negative Negative Urine Urobilinogen 2 H Negative mg/dL Urine Leukocyte Esterase Trace Negative /uL Urine RBC 1 0 - 3 /hpf Urine Microscopic WBC 8 H 0-3 /HPF Urine Squamous Epithelial Cells Few <5 /hpf Urine Bacteria None seen None Seen /hpf Urine Mucus Few None Seen Urine Glucose 1+ H Normal mg/dL Assessment Preprocedural cardiovascular examination Chronic HFpEF, NYHA class II Hypertension Hyperlipidemia COPD Type 2 diabetes mellitus History renal cancer status post right nephrectomy Tobacco use Morbid obesity Plan/Recommendation We will continue with following plan/recommendations (Dr. Lindo): Transthoracic echocardiogram reveals EF 60% with no regional wall motion abnormalities. Chest x-ray from this admission reveals no acute cardiopulmonary disease. Revised cardiac risk index (Atilio criteria): 1 point (6.0% risk of major cardiac event). The patient denies any underlying history of coronary artery disease. Prior to admission, the patient reports a fair functional capacity. Per Cardiology standpoint, the patient is at an acceptable risk for moderate risk surgery. There is no additional cardiac workup indicated prior to surgery. Thank you for allowing us to care for this patient. Please call with any questions or concerns. Critical care time spent: 40 minutes This medical document was created using an electronic medical record system with voice recognition software and computerized dictation system. Although this document has been carefully reviewed, there might still be some phonetic and typographical errors. Occasional wrong-word or ``sound-alike substitutions may have occurred due to the inherent limitations of voice recognition software. These areas are purely typographical due to imperfections of the software programs and do not reflect any compromise in the patient's medical care. Please read the chart carefully and recognize, using context, where these substitutions have occurred. Plan discussed with: Patient NYHA Physical activity limitations: Class2(Slight)fatigue,sob (palpitatns, angina w activityv) Date of Service: May 10, 2024 Billing Provider: RICCARDO LINDO MD Cardiology Common Codes: [id number] INP/OBS CARE (High) Cardiology Consultation Codes: [id number] CONSULT <45MIN ALEAH VILLALOBOS May 10, 2024 17:27
[2024-05-11 04:52] VITALS: BP 129/93; PULSE 77; RESP 19; TEMP 97.3; O2SAT 93
[2024-05-11 06:57] LABS: INR 1.04 (0.9-1.15); Partial Thromboplastin Time 29.6 SEC (24.5-34.5)
[2024-05-11 08:00] VITALS: PULSE 73; RESP 18; O2SAT 94
[2024-05-11 08:40] VITALS: BP 101/53; PULSE 73; RESP 18; TEMP 98.6; O2SAT 94
--- NOTE | 2024-05-11 12:01 | DVHPN2 ---
Reviewed: Care Plan, H&P, Labs, Medications, Previous Orders, Radiology Changes from previous H/P or p: No Changes Eyes: No Pain, No Vision change, No Conjunctivae inflammation, No Eyelid inflammation, No Other, No Redness ENT: No Ear pain, No Ear discharge, No Nose pain, No Nose discharge, No Nose congestion, No Mouth pain, No Mouth swelling, No Throat pain, No Throat swelling, No Other Cardiovascular: No Chest Pain, No Palpitations, No Orthopnea, No Paroxysmal Noc. Dyspnea, No Edema, No Lt Headedness, No Other Respiratory: No Cough, No Dry, No Shortness of breath, No SOB with excertion, No Wheezing, No Hemoptysis, No Pleuritic Pain, No Sputum, No Other Gastrointestinal: Nausea; No Vomiting, No Abdominal Pain, No Diarrhea, No Constipation, No Melena, No Hematochezia, No Other Genitourinary: Dysuria; No Frequency, No Incontinence, No Hematuria, No Retention; Other (Flank pain) Musculoskeletal: No other, No neck pain, No shoulder pain, No arm pain, No back pain, No hand pain, No leg pain, No foot pain Skin: No Rash, No Lesions, No Jaundice, No Bruising, No Other Objective Vitals Vital Signs Date Time Temp Pulse Resp B/P (MAP) Pulse Ox O2 Delivery O2 Flow Rate FiO2 05/11/24 08:40 98.6 73 18 101/53 (69) 94 98.6 05/11/24 08:00 Room Air* 0 21 Intake/Output Intake and Output 05/11/24 07:00 Intake Total 1850 ml Output Total 300 ml Balance 1550 ml Intake Oral 1850 ml Output Urine Total 300 ml # Voids 4 Medications Current Medications Medications Dose Ordered Sig/Tamiko Route Start Time Stop Time Status Last Admin Dose Admin Acetaminophen 650 mg Q6HP PRN PO 05/09/24 17:00 Acetaminophen/ Hydrocodone Bitart 1 tab Q6HPRN PRN PO 05/09/24 17:00 05/10/24 12:12 1 TAB Morphine Sulfate 1 mg Q6HPRN PRN IV 05/09/24 18:00 05/11/24 03:44 1 MG Laboratory Results Laboratory Tests 05/08/24 18:47 05/08/24 20:15 Coagulation Test 05/11/24 06:02 Prothrombin Time 11.0 sec (9.3-11.8) Prothrombin Time INR 1.04 (0.9-1.15) Activated Partial Thromboplast Time 29.6 SEC (24.5-34.5) Urinalysis Test 05/08/24 17:31 Urine Color Light-yellow (Yellow) Urine Clarity Turbid (Clear) H Urine pH 7.5 (5.0-9.0) Urine Specific [place] 1.016 (1.001-1.035) Urine Protein 1+ (Negative) H Urine Ketones Negative (Negative) Urine Blood Negative /uL (Negative) Urine Nitrite Negative (Negative) Urine Bilirubin Negative (Negative) Urine Urobilinogen 2 mg/dL (Negative) H Urine Leukocyte Esterase Trace /uL (Negative) Urine RBC 1 /hpf (0 - 3) Urine Microscopic WBC 8 /HPF (0-3) H Urine Squamous Epithelial Cells Few /hpf (<5) Urine Bacteria None seen /hpf (None Seen) Urine Mucus Few (None Seen) Urine Glucose 1+ mg/dL (Normal) H Labs and/or images reviewed: Labs reviewed by me, Image(s) reviewed by me Assessment/Plan Assessment/Plan Acute abdominal pain possibly secondary to incisional hernia: Consult for surgeon Dr. Milena giron, cleared for surgery by Cardiology History of right kidney cancer status post nephrectomy COPD exacerbation CHF exacerbation Diabetes Hypercholesterolemia Hypertension Time spent 45 minutes Plan discussed with: Patient My Orders Orders - ROD PAYTON MD Procedure Category Date Status Time * Cardiology Consult CONS 05/10/24 Transmitted 12:00 Date of Service: May 11, 2024 Billing Provider: ROD PAYTON MD Common Visit Codes: [id number] INP/OBS CARE(HIGH) ROD PAYTON MD May 11, 2024 12:01
--- NOTE | 2024-05-11 12:40 | ECG ---
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
[2024-05-11 13:03] VITALS: BP 138/87; PULSE 80; RESP 16; TEMP 98.7; O2SAT 94
[2024-05-11 16:41] VITALS: BP 160/99; PULSE 88; RESP 18; TEMP 98.1; O2SAT 96
[2024-05-11] MEDS ORDERED: InsuLIN REG 1unit/0.01ml Soln (100units/ml) SC SCH (22:00)
--- NOTE | 2024-05-12 09:37 | DVHDS2 ---
Discharge Summary Date of Admission May 08, 2024 at 22:59 Date of Discharge: May 12, 2024 Admitting Diagnosis Abdominal pain Wounds: None Labs/Diagnostic Data: Laboratory Results Test 05/11/24 06:02 05/08/24 20:15 05/08/24 18:47 05/08/24 17:31 Prothrombin Time 11.0 sec (9.3-11.8) Prothrombin Time INR 1.04 (0.9-1.15) Activated Partial Thromboplast Time 29.6 SEC (24.5-34.5) Sodium Level 135 mmol/L (136-145) Potassium Level 4.4 mmol/L (3.5-5.1) Chloride Level 106 mmol/L (98-107) Carbon Dioxide Level 25 mmol/L (20-31) Anion Gap 4 (5-15) Blood Urea Nitrogen 12 mg/dL (9-23) Creatinine 1.23 mg/dL (0.700-1.30) Glomerular Filtration Rate Calc 69 mL/min (>90) BUN/Creatinine Ratio 9.8 (10.0-20.0) Serum Glucose 135 mg/dL (74-106) Calcium Level 9.9 mg/dL (8.7-10.4) Total Bilirubin 0.3 mg/dL (0.2-1.0) Aspartate Amino Transferase (AST) 17 U/L (13-40) Alanine Aminotransferase (ALT) 19 U/L (7-40) Alkaline Phosphatase 67 U/L (46-116) Total Protein 7.1 g/dL (5.7-8.2) Albumin 4.4 g/dL (3.2-4.8) Lipase 30 U/L (12-53) White Blood Count 10.5 10^3/uL (4.4-10.8) Red Blood Count 4.88 10^6/uL (4.5-5.90) Hemoglobin 15.6 g/dL (13.5-17.5) Hematocrit 46.0 % (41.0-53.0) Mean Corpuscular Volume 94.1 fL (80.0-100.0) Mean Corpuscular Hemoglobin 32.0 pg (28.0-32.0) Mean Corpuscular Hemoglobin Concent 34.0 g/dL (32.0-36.0) Red Cell Distribution Width 13.4 % (11.8-14.3) Platelet Count 230 10^3/uL (140-450) Mean Platelet Volume 9.8 fL (6.9-10.8) Neutrophils (%) (Auto) 68.4 % (37.0-80.0) Lymphocytes (%) (Auto) 18.0 % (10.0-50.0) Monocytes (%) (Auto) 9.4 % (0.0-12.0) Eosinophils (%) (Auto) 3.8 % (0.0-7.0) Basophils (%) (Auto) 0.4 % (0.0-2.0) Neutrophils # (Auto) 7.2 10 ^3/uL (1.6-8.6) Lymphocytes # (Auto) 1.9 10 ^3/uL (0.4-5.4) Monocytes # (Auto) 1.0 10 ^3/uL (0-1.3) Eosinophils # (Auto) 0.4 10 ^3/uL (0-0.8) Basophils # (Auto) 0 10 ^3/uL (0-0.2) Nucleated Red Blood Cells 0.0 % B-Type Natriuretic Peptide 4.49 pg/mL (0-100) Urine Color Light-yellow (Yellow) Urine Clarity Turbid (Clear) Urine pH 7.5 (5.0-9.0) Urine Specific [place] 1.016 (1.001-1.035) Urine Protein 1+ (Negative) Urine Ketones Negative (Negative) Urine Blood Negative /uL (Negative) Urine Nitrite Negative (Negative) Urine Bilirubin Negative (Negative) Urine Urobilinogen 2 mg/dL (Negative) Urine Leukocyte Esterase Trace /uL (Negative) Urine RBC 1 /hpf (0 - 3) Urine Microscopic WBC 8 /HPF (0-3) Urine Squamous Epithelial Cells Few /hpf (<5) Urine Bacteria None seen /hpf (None Seen) Urine Mucus Few (None Seen) Urine Glucose 1+ mg/dL (Normal) Other Laboratory Tests 05/08/24 20:15 05/08/24 18:47 Brief Hx & Hospital Course: 54-year-old male with COPD CHF diabetes hypertension hypercholesterolemia came in for abdominal pain found to have incisional hernia consult by surgeon Dr. Abbott. cleared by cardiology for surgery, surgeon Dr Abbott advised the patient should go to higher level of care as an outpatient as the hernia is complicated and patient is grossly obese.. Patient was advised accordingly. While awaiting formal discharge patient left AMA. Condition satisfactory at the time of leaving AMA Consults/Reason for consult Surgeon Dr. Abbott Operations or Procedures CT abdomen pelvis without contrast Condition at Discharge: Fair Final Diagnosis/Problems List Acute abdominal pain possibly secondary to incisional hernia: Consult for surgeon Dr. Abbott appreciated, cleared for surgery by Cardiology History of right kidney cancer status post nephrectomy COPD exacerbation CHF exacerbation Diabetes Hypercholesterolemia Hypertension Discharge Disposition: AMA 39 (Time taken for discharge summary 39 minutes) Discharge Statement: "Patient was advised to return to the ER or call 911 if any headaches, dizziness, shortness of breath, chest pain, abdominal pain, bleeding, fevers, or worsening of medical condition. Patient was counseled about treatment plan, medications, possible side effects, patientverbalized understanding. All questions were answered to the best of my ability. This discharge took greater then 30 minutes in planning, reviewing documentation, counseling the patient, and discussing with other team members." ASSESSMENT ASSESSMENT Hospital Course Uneventful Assessment Date of Service: May 12, 2024 Billing Provider: ROD PAYTON MD Common Visit Codes: [id number] INP/OBS CARE(HIGH) ROD PAYTON MD May 12, 2024 09:36
== END 2024-05-11 18:20 | disposition left against medical advice (07) | DRG 254 ==
LOC: ER 17:18 → OVERFLOW 22:59 → ER 23:02 → WEST WING 05-09 11:24
PROVIDERS: ADMIT Family Medicine; ATTEND Family Medicine
DX: K43.2 Incisional hernia without obstruction or gangrene (principal); I50.31 Acute diastolic (congestive) heart failure; J44.1 Chronic obstructive pulmonary disease with (acute) exacerbation; I11.0 Hypertensive heart disease with heart failure; E11.9 Type 2 diabetes mellitus without complications; E66.01 Morbid (severe) obesity due to excess calories; E78.00 Pure hypercholesterolemia, unspecified; Z53.29 Procedure and treatment not carried out because of patient's decision for other reasons; F17.210 Nicotine dependence, cigarettes, uncomplicated; Z68.38 Body mass index [BMI] 38.0-38.9, adult; Z85.528 Personal history of other malignant neoplasm of kidney; Z90.5 Acquired absence of kidney
CPT/HCPCS: 36415; 71045; 74176; 80053; 81001; 83690; 83880; 85025; 85610; 85730; 93005; 93306; G0378; J2405